=== PATIENT | female | born 1985 | race American Indian/Alaskan Native ===

== ENCOUNTER 2018-03-10 09:27 | Emergency (ER) | payer OTHER ==
[2018-03-10 10:05] VITALS: BP 139/83
--- NOTE | 2018-03-10 11:04 | Emergency Department Report ---
Minor Respiratory - HPI Chief Complaint: Sore Throat Stated Complaint: SORE THROAT Time Seen by Provider: 03/10/18 10:39 Duration: 5 Days Pain Location: Throat Severity: moderate Minor Respiratory: Yes Rhinorrhea, Yes Sore Throat, Yes Able to Tolerate Fluids , Yes Cough, Yes Sick Contacts (daughter), No Ear Pain, No Hemoptysis, No Chest Pain, No Shortness of Breath, No Fever Other History: This is a 32 y.o. female that presents with sore throat and hoarseness for 5 days. States her daughter came home sick last week and possibly caught this from her. She thought it was related to pollen. She is taking tea, jolie, and tylenol for symptoms with no improvement of symptoms. She reports being able to tolerate liquids and food with discomfort. Denies recent travel, drooling, facial swelling, fever, chills, body aches, and nausea/ vomiting. ED Review of Systems ROS: Stated complaint: SORE THROAT Other details as noted in HPI Constitutional: denies: chills, fever ENT: throat pain, congestion. denies: ear pain, dental pain, hearing loss, epistaxis Respiratory: cough. denies: shortness of breath, wheezing Cardiovascular: denies: chest pain, palpitations Gastrointestinal: denies: abdominal pain, nausea, vomiting, diarrhea Neurological: denies: headache, weakness, paresthesias Psychiatric: denies: anxiety, depression ED Past Medical Hx - Past Medical History Previous Medical History?: Yes Additional medical history: Vaginal delivery x2 - Surgical History Past Surgical History?: No - Social History Smoking Status: Light Tobacco Smoker Substance Use Type: Alcohol - Medications Home Medications: Home Medications Medication Instructions Recorded Confirmed Last Taken Type Fluconazole [Diflucan] 150 mg PO QDAY #1 tablet 10/21/13 Unknown Rx Sulfamethoxazole/Trimethoprim 1 each PO BID #14 tablet 10/21/13 Unknown Rx [Bactrim DS] metroNIDAZOLE [Flagyl] 500 mg PO BID #14 tablet 10/21/13 Unknown Rx Penicillin V Potassium 500 mg PO BID 10 Days #20 tablet 03/10/18 Unknown Rx Minor Respiratory Exam - Exam General: Vital signs noted. No distress. Alert and acting appropriately. HEENT: Yes Pharyngeal Erythema (uvula midline, tonsils swollen, no abscess), Yes Moist Mucous Membranes, Yes Rhinorrhea (turbinates red and swollen, clear discharge), No Pharyngeal Exudates, No Conjuctival Injection, No Frontal Tenderness, No Maxillary Tenderness Ear: Neither TM Bulge, Neither TM Erythema, Neither EAC Pain, Neither EAC Discharge Neck: Yes Supple, No Adenopathy Lungs: Yes Good Air Exchange, No Wheezes, No Ronchi, No Stridor, No Cough, No Labored Respirations, No Retractions, No Use of Accessory Muscles, No Other Abnormal Lung Sounds Heart: Yes Regular, No Murmur Abdomen: Yes Normal Bowel Sounds, No Tenderness, No Peritoneal Signs Skin: No Rash, No Edema Neurologic: Alert and oriented, no deficits. Musculoskeletal: Unremarkable. ED Course Vital Signs 03/10/18 10:01 Temperature 97.7 F Pulse Rate 70 Respiratory 18 Rate Blood Pressure 139/83 O2 Sat by Pulse 100 Oximetry ED Medical Decision Making - Medical Decision Making This is a 32 y.o. female that presents with sore throat and hoarseness for 5 days. Patient examined by me and stable. No distress noted. Rapid strep obtained and negative. Vitals stable. Physical findings susceptible of strep pharyngitis. Given bicillin I-A 1.2 mL IM once in ER. Start penicillin V 500 mg po bid x 10 days. Take tylenol or ibuprofen for pain. Discussed plan with patient and he agreed with plan to treat outpatient. Discharged home. Return to work tomorrow. Follow up with PCP in 48-72 hours. Critical care attestation.: If time is entered above; I have spent that time in minutes in the direct care of this critically ill patient, excluding procedure time. ED Disposition Clinical Impression: Streptococcal pharyngitis Disposition: TO HOME OR SELFCARE Is pt being admited?: No Does the pt Need Aspirin: No Condition: Stable Instructions: Strep Throat (ED) Additional Instructions: Expect symptoms to improve within 3 or 4 days. There is no need for bed rest or isolation. Use tyleonl or ibuprofen for symptoms of sore throat, headache, and fever. Return to work in 24 hours of taking antibiotics. Follow up with Primary Care Provider in 48-72 hours. Prescriptions: Penicillin V Potassium 500 mg PO BID 10 Days #20 tablet Referrals: [facility] [Outside] - 3-5 Days [facility] [Outside] - 3-5 Days [facility] [Outside] - 3-5 Days Forms: Work/School Release Form(ED) Time of Disposition: 12:43 Print Language: TONGAN
[2018-03-10] MEDS ORDERED: BICILLIN L-A IM ONE (12:38)
[2018-03-10] MEDS ORDERED: DECADRON IM ONE (12:38)
== END 2018-03-10 12:56 | disposition home or self-care (01) ==
LOC: ED 09:27
DX: J02.0 Streptococcal pharyngitis (principal)
CPT/HCPCS: 87116; 87430; 96372; 99283; J0561; J1100